=== PATIENT | male | born 1995 | race Caucasian/White ===

== ENCOUNTER → 2020-04-27 10:56 | Outpatient (CLI) | payer OTHER, SELFPAY ==
[2020-04-28 13:54] LABS: Covid-19 Nasal PCR Sendout Lex Not Detected
== END ==
PROVIDERS: PCP Family Medicine; Visit Provider Family Medicine
DX: Z03.818 Encounter for observation for suspected exposure to other biological agents ruled out (principal)
CPT/HCPCS: U0004